=== PATIENT | male | born 1930 | race Caucasian/White ===

== ENCOUNTER 2018-03-15 12:07 | Outpatient (CLI) | payer MEDICARE, OTHER | END 2018-03-15 23:59 | disposition home or self-care (01) | LOC: VAS 12:07 | PROVIDERS: ATTEND Internal Medicine Cardiovascular Disease | DX: I65.23 Occlusion and stenosis of bilateral carotid arteries (principal); I08.1 Rheumatic disorders of both mitral and tricuspid valves; R55 Syncope and collapse; R40.4 Transient alteration of awareness; Z87.891 Personal history of nicotine dependence | CPT/HCPCS: 93306; 93880 ==

== ENCOUNTER 2018-04-04 05:56 | Day surgery (SDC) | payer MEDICARE, OTHER ==
[2018-04-03 14:30] LABS: INR 1.1 INR; PARTIAL THROMBOPLASTIN TIME 25 SECONDS (22-32); PROTHROMBIN TIME 11.5 SECONDS (9.0-12.0)
[2018-04-03 14:31] LABS: ALBUMIN 3.5 G/DL (3.4-5.0); ANION GAP 7 (8-16); BLOOD UREA NITROGEN 15 MG/DL (7-18); BUN/CREATININE RATIO 19.2 (5.4-32.0); CALCIUM 8.6 MG/DL (8.5-10.1); CHLORIDE 96 MMOL/L (99-107); CREATININE 0.78 MG/DL (0.60-1.10); GLUCOSE 89 MG/DL (70-104); POTASSIUM 4.7 MMOL/L (3.5-5.1); SODIUM 132 MMOL/L (135-145); TOTAL CARBON DIOXIDE 29.5 MMOL/L (24-32); eGFR > 90 ML/MIN
[2018-04-03 14:38] LABS: BASOPHILS % (AUTO) 0.5 % (0-1); EOSINOPHILS # (AUTO) 0.2 X10'3 (0-0.9); EOSINOPHILS % (AUTO) 4.7 % (0-6); HEMATOCRIT 37.5 % (42.0-52.0); LYMPHOCYTES # (AUTO) 1.4 X10'3 (1.1-4.8); LYMPHOCYTES % (AUTO) 28.3 % (21-51); MEAN CORPUSCULAR HEMOGLOBIN 34.8 PG (27.0-31.0); MEAN CORPUSCULAR HGB CONC 34.8 % (33.0-36.5); MEAN CORPUSCULAR VOLUME 100.1 FL (78-98); MEAN PLATELET VOLUME 7.3 FL (7.4-10.4); MONOCYTES # (AUTO) 0.6 X10'3 (0-0.9); MONOCYTES % (AUTO) 13.1 % (2-12); NEUTROPHILS # (AUTO) 2.6 X10'3 (1.8-7.7); NEUTROPHILS % (AUTO) 53.4 % (42-75); PLATELET COUNT 155 X10'3 (140-440); RED BLOOD COUNT 3.74 X10'6 (4.70-6.10); WHITE BLOOD COUNT 4.9 X10'3 (4.5-11.0)
[2018-04-04] VITALS (17 sets, daily range): BP systolic 91–139; BP diastolic 57–82
[~2018-04-04] VITALS: Ht 160 cm; Wt 66.0 kg
[2018-04-04] MEDS ORDERED: ceFAZolin 1GM/D5W- ADD-VANTAGE 50 ML IV ONE (06:45)
[2018-04-04] MEDS ORDERED: normal saline 1000ml 1,000 ML IV SCH (06:45)
[2018-04-04] MEDS ORDERED: [UNRECOGNIZED DRUG - CODE] PO (06:49)
[2018-04-04] MEDS ORDERED: POTA99TA21 PO (06:49)
[2018-04-04] MEDS ORDERED: VITA-268 PO (06:49)
[2018-04-04] MEDS ORDERED: UBID100C16 PO (06:49)
[2018-04-04] MEDS ORDERED: DIGO125T PO (06:49)
[2018-04-04] MEDS ORDERED: DABI150C PO (06:49)
[2018-04-04] MEDS ORDERED: MULT-1074 PO (06:49)
[2018-04-04] MEDS ORDERED: CHOL2000 PO (06:49)
[2018-04-04] MEDS ORDERED: ROSU10TA PO (06:49)
[2018-04-04] MEDS ORDERED: MAGN500C16 PO (06:49)
[2018-04-04] MEDS ORDERED: CALCIUM PO (06:49)
[2018-04-04] MEDS ORDERED: LEVO75TA PO (06:49)
[2018-04-04] MEDS ORDERED: OMEG1CAP20 PO (06:49)
[2018-04-04] MEDS ORDERED: FLO0.4C PO (06:49)
[2018-04-04] MEDS ORDERED: ASCO10007 PO (06:49)
[2018-04-04] MEDS ORDERED: CARV3.122 PO (06:49)
[2018-04-04] MEDS ORDERED: fentaNYL/PF 50MCG/1 ML 2ML syringe ONE (07:49)
[2018-04-04] MEDS ORDERED: midazolam 2 mg/2 ml injection ONE (07:49)
[2018-04-04] MEDS ORDERED: ceFAZolin 1000mg inj ONE (07:49)
[2018-04-04] MEDS ORDERED: LIDOcaine 1% w/EPI 1:100,000 30ml vial (MDV) ONE (07:50)
[2018-04-04] MEDS ORDERED: iohexol 350 MG/ML 50ML vial IV ONE (08:33)
[2018-04-04] MEDS ORDERED: atropine 0.1mg/ml 10ml syringe ONE (08:38)
[2018-04-04] MEDS ORDERED: HYDROcodone/acetaminophen 10/325mg tab PO PRN (10:15)
[2018-04-04] MEDS ORDERED: HYDROcodone/acetaminophen 5mg/325mg tablet PO PRN (10:15)
[2018-04-04] MEDS ORDERED: ceFAZolin 1GM/D5W- ADD-VANTAGE 50 ML IV SCH (15:00)
== END 2018-04-04 16:10 | disposition home or self-care (01) ==
LOC: SSTAY O 05:56
PROVIDERS: ATTEND Internal Medicine Cardiovascular Disease
DX: I49.5 Sick sinus syndrome (principal); I48.91 Unspecified atrial fibrillation; I25.10 Atherosclerotic heart disease of native coronary artery without angina pectoris; E78.5 Hyperlipidemia, unspecified; I48.0 Paroxysmal atrial fibrillation; N40.0 Benign prostatic hyperplasia without lower urinary tract symptoms; E03.9 Hypothyroidism, unspecified; I08.1 Rheumatic disorders of both mitral and tricuspid valves; M19.90 Unspecified osteoarthritis, unspecified site; I65.23 Occlusion and stenosis of bilateral carotid arteries; Z72.89 Other problems related to lifestyle; Z95.1 Presence of aortocoronary bypass graft; Z90.89 Acquired absence of other organs; Z86.74 Personal history of sudden cardiac arrest; Z88.8 Allergy status to other drugs, medicaments and biological substances; Z98.890 Other specified postprocedural states; Z79.899 Other long term (current) drug therapy
CPT/HCPCS: 33208; 36415; 71046; 80048; 85025; 85610; 85730; 93005; 99152; 99153; A4565; A6449; C1785; C1894; C1898; J0461; J0690; J2250; J3010; J3490; J7030; Q9967; A4620

== ENCOUNTER 2018-04-05 13:33 | Outpatient (CLI) | payer MEDICARE, OTHER ==
[~2018-04-05 13:33] MED LIST: ASCO10007 PO; CALCIUM PO; CARV3.122 PO; CHOL2000 PO; DABI150C PO; DIGO125T PO; FLO0.4C PO; LEVO75TA PO; MAGN500C16 PO; MULT-1074 PO; OMEG1CAP20 PO; POTA99TA21 PO; ROSU10TA PO; UBID100C16 PO; VITA-268 PO; [UNRECOGNIZED DRUG - CODE] PO
== END 2018-04-05 23:59 | disposition home or self-care (01) ==
LOC: RAD 13:33
PROVIDERS: ATTEND Internal Medicine Cardiovascular Disease
DX: J93.9 Pneumothorax, unspecified (principal); R91.8 Other nonspecific abnormal finding of lung field; Z87.891 Personal history of nicotine dependence
CPT/HCPCS: 71046

== ENCOUNTER 2018-07-10 06:45 | Day surgery (SDC) | payer MEDICARE, OTHER ==
[2018-07-09 14:18] LABS: BASOPHILS % (AUTO) 0.4 % (0-1); EOSINOPHILS # (AUTO) 0.2 X10'3 (0-0.9); EOSINOPHILS % (AUTO) 3.5 % (0-6); HEMOGLOBIN 13.6 g/dl (14.0-17.9); LYMPHOCYTES # (AUTO) 1.1 X10'3 (1.1-4.8); LYMPHOCYTES % (AUTO) 21.4 % (21-51); MEAN CORPUSCULAR HEMOGLOBIN 34.7 PG (27.0-31.0); MEAN CORPUSCULAR HGB CONC 34.9 % (33.0-36.5); MEAN CORPUSCULAR VOLUME 99.6 FL (78-98); MEAN PLATELET VOLUME 7.4 FL (7.4-10.4); MONOCYTES # (AUTO) 0.7 X10'3 (0-0.9); MONOCYTES % (AUTO) 12.8 % (2-12); NEUTROPHILS # (AUTO) 3.3 X10'3 (1.8-7.7); NEUTROPHILS % (AUTO) 61.9 % (42-75); PLATELET COUNT 151 X10'3 (140-440); RED BLOOD COUNT 3.92 X10'6 (4.70-6.10); RED CELL DISTRIBUTION WIDTH 13.3 % (11.5-14.5); WHITE BLOOD COUNT 5.3 X10'3 (4.5-11.0)
[2018-07-09 14:26] LABS: INR 1.2 INR; PROTHROMBIN TIME 12.3 SECONDS (9.0-12.0)
[2018-07-09 14:27] LABS: ALBUMIN 3.8 G/DL (3.4-5.0); ANION GAP 5 (8-16); BLOOD UREA NITROGEN 15 MG/DL (7-18); BUN/CREATININE RATIO 18.1 (5.4-32.0); CALCIUM 8.7 MG/DL (8.5-10.1); CHLORIDE 96 MMOL/L (99-107); CREATININE 0.83 MG/DL (0.60-1.10); GLUCOSE 84 MG/DL (70-104); POTASSIUM 4.8 MMOL/L (3.5-5.1); SODIUM 130 MMOL/L (135-145); TOTAL CARBON DIOXIDE 28.7 MMOL/L (24-32); eGFR 88 ML/MIN
[~2018-07-10] VITALS: Ht 162.6 cm; Wt 67.3 kg
[2018-07-10] VITALS (15 sets, daily range): BP systolic 86–130; BP diastolic 51–89
[~2018-07-10 06:45] MED LIST changes: +BICA50TA4 PO; -[UNRECOGNIZED DRUG - CODE] PO
[2018-07-10] MEDS ORDERED: diphenhydrAMINE 25mg capsule PO ONE (07:15)
[2018-07-10] MEDS ORDERED: normal saline 1000ml 1,000 ML IV SCH (07:15)
[2018-07-10] MEDS ORDERED: MIDAZolam 5mg/ml 2ml vial IV ONE (07:15)
[2018-07-10] MEDS ORDERED: LORazepam 0.5 MG tablet PO ONE (07:15)
[2018-07-10] MEDS ORDERED: atropine 0.1mg/ml 10ml syringe IV ONE (07:15)
[2018-07-10] MEDS ORDERED: morphine 10mg/ml inj. IV ONE (07:15)
[2018-07-10] MEDS ORDERED: amiodarone in dextrose, iso-osm 150mg/100ml bag IV ONE (07:15)
[2018-07-10] MEDS ORDERED: SOTA80TA73 PO (07:46)
[2018-07-10] MEDS ORDERED: MEMA5TAB PO (07:46)
== END 2018-07-10 11:35 | disposition home or self-care (01) ==
LOC: SSTAY O 06:45
PROVIDERS: ATTEND Internal Medicine Cardiovascular Disease
DX: I48.0 Paroxysmal atrial fibrillation (principal); E78.5 Hyperlipidemia, unspecified; I49.5 Sick sinus syndrome; I25.2 Old myocardial infarction; I25.810 Atherosclerosis of coronary artery bypass graft(s) without angina pectoris; M19.90 Unspecified osteoarthritis, unspecified site; N40.0 Benign prostatic hyperplasia without lower urinary tract symptoms; E03.9 Hypothyroidism, unspecified; Z72.89 Other problems related to lifestyle; Z86.74 Personal history of sudden cardiac arrest; Z96.619 Presence of unspecified artificial shoulder joint; Z95.0 Presence of cardiac pacemaker; Z95.1 Presence of aortocoronary bypass graft; Z90.49 Acquired absence of other specified parts of digestive tract; Z90.89 Acquired absence of other organs; Z98.890 Other specified postprocedural states; Z79.899 Other long term (current) drug therapy; Z88.8 Allergy status to other drugs, medicaments and biological substances; Z82.49 Family history of ischemic heart disease and other diseases of the circulatory system
CPT/HCPCS: 36415; 80048; 85025; 85610; 92960; 93005; J0282; J2250; J2270; J7030; A4620

== ENCOUNTER 2020-03-19 05:58 | Day surgery (SDC) | payer MEDICARE, OTHER ==
[2020-03-12 12:23] LABS: BASOPHILS % (AUTO) 0.7 % (0-1); EOSINOPHILS # (AUTO) 0.2 X10'3 (0-0.9); EOSINOPHILS % (AUTO) 3.1 % (0-6); MEAN CORPUSCULAR HEMOGLOBIN 34.4 PG (27.0-31.0); MEAN CORPUSCULAR HGB CONC 34.1 g/dL (33.0-36.5); MONOCYTES # (AUTO) 0.7 X10'3 (0-0.9); MONOCYTES % (AUTO) 12.7 % (2-12); NEUTROPHILS # (AUTO) 3.7 X10'3 (1.8-7.7); NEUTROPHILS % (AUTO) 65.5 % (42-75); PRE OP HEMATOCRIT 38.1 % (42.0-52.0); PRE OP PLATELET COUNT 170 X10'3 (140-440); RED BLOOD COUNT 3.77 X10'6 (4.70-6.10); RED CELL DISTRIBUTION WIDTH 12.7 % (11.5-14.5)
[2020-03-12 12:35] LABS: PRE OP INR 1.1 INR
[2020-03-12 12:36] LABS: ALBUMIN 4.1 G/DL (3.4-5.0); ALBUMIN/GLOBULIN RATIO 1.5 (1.1-1.5); ALKALINE PHOSPHATASE 64 IU/L (46-116); BLOOD UREA NITROGEN 12 MG/DL (7-18); BUN/CREATININE RATIO 13.6 (5.4-32.0); CALCIUM 9.1 MG/DL (8.5-10.1); CHLORIDE 95 MMOL/L (99-107); CREATININE 0.88 MG/DL (0.60-1.10); PRE OP ALT 18 U/L (30-65); PRE OP ANION GAP 7 (8-16); PRE OP AST 20 U/L (10-37); PRE OP BILIRUB, TOTAL 0.5 MG/DL (0.0-1.0); PRE OP GLUCOSE 95 MG/DL (70-104); PRE OP POTASSIUM 4.5 MMOL/L (3.4-5.1); TOTAL CARBON DIOXIDE 26.7 MMOL/L (24-32); TOTAL PROTEIN 6.9 G/DL (6.4-8.2); eGFR 82 ML/MIN
[2020-03-12 12:41] LABS: PRE OP SODIUM 129 MMOL/L (135-145)
[~2020-03-19] VITALS: Ht 165.1 cm; Wt 63.0 kg
[~2020-03-19 05:58] MED LIST changes: +ACET-1995 PO; +APIX5TAB3 PO; -ASCO10007 PO; -CALCIUM PO; -CARV3.122 PO; -CHOL2000 PO; -DABI150C PO; -DIGO125T PO; +FURO40TA4 PO; -MAGN500C16 PO; +MEMA5TAB PO; -MULT-1074 PO; -OMEG1CAP20 PO; +POTA10TA19 PO; -POTA99TA21 PO; -ROSU10TA PO; +ROSU10TA2 PO; +SOTA80TA73 PO; -UBID100C16 PO; -VITA-268 PO; +cefazolin/dext.iso 2gm/50ml 50 ML IV ONE; +famotidine 20mg tablet PO ONE; +ringers solution, lacted 1,000 ML IV SCH
[2020-03-19] MEDS ORDERED: BUPIVAcaine/PF 2.5mg/ml (0.25%) 10ml vial ONE (06:38)
[2020-03-19 06:45] VITALS: BP 150/78
[2020-03-19] MEDS ORDERED: ringers solution, lacted 1,000 ML IV SCH (07:17)
[2020-03-19] MEDS ORDERED: ondansetron/PF 4mg/2ml inj IV PRN (07:20)
[2020-03-19] MEDS ORDERED: hydrALAZINE 20mg/ml inj. IV PRN (07:20)
[2020-03-19] MEDS ORDERED: morphine 4 MG/ML inj SYRINge IV PRN (07:20)
[2020-03-19] MEDS ORDERED: fentaNYL/PF 50MCG/1 ML 2ML syringe IV PRN ×2 (07:20)
[2020-03-19] MEDS ORDERED: morphine 2 MG/ML inj. syringe IV PRN (07:20)
[2020-03-19] MEDS ORDERED: labetalol 20mg/4ml (5mg/ml) syringe IV PRN (07:20)
[2020-03-19] MEDS ORDERED: LIDOcaine 0.5% (5mg/ml) 50ml vial ONE (07:21)
[2020-03-19] MEDS ORDERED: MIDAZolam 5mg/5ml vial ONE (07:25)
[2020-03-19] MEDS ORDERED: fentaNYL/PF 50MCG/1 ML 2ML syringe ONE (07:25)
[2020-03-19 08:03] VITALS: BP 120/60
--- NOTE | 2020-03-19 08:03 | NUR ---
Received from OR via BED, accompanied by Anesthesiologist Dr Roper and report given by Anesthesiolgist. PATIENT A&OX4, DENIES PAIN, V/S WNL, NEUROVASCULAR CHECKS INTACT, 20G PIV left hand, SCD ON, DRESSING TO RIGHT WRIST CDI ELEVATED WITH ICEBAG APPLIED.
[2020-03-19 08:13] VITALS: BP 101/62
[2020-03-19 08:23] VITALS: BP 110/65
--- NOTE | 2020-03-19 09:08 | NUR ---
Pt discharged to vehicle without incident. IV DC'd, pt and verbalized all understanding of DC information. Pt has pain script at home already from [facility] office. Dressing reamins CDI, ice pack sent with patient and he is still able to wiggle gfingers good cap refill
== END 2020-03-19 08:53 | disposition home or self-care (01) ==
LOC: PAS 05:58
PROVIDERS: ATTEND Orthopaedic Surgery Hand Surgery
DX: G56.01 Carpal tunnel syndrome, right upper limb (principal); I25.10 Atherosclerotic heart disease of native coronary artery without angina pectoris; I48.91 Unspecified atrial fibrillation; I25.2 Old myocardial infarction; Z85.46 Personal history of malignant neoplasm of prostate; Z95.1 Presence of aortocoronary bypass graft; Z95.0 Presence of cardiac pacemaker; Z98.890 Other specified postprocedural states; Z88.8 Allergy status to other drugs, medicaments and biological substances; Z72.89 Other problems related to lifestyle; Z11.59 Encounter for screening for other viral diseases; Z79.899 Other long term (current) drug therapy; Z79.01 Long term (current) use of anticoagulants; Z82.49 Family history of ischemic heart disease and other diseases of the circulatory system
CPT/HCPCS: 36415; 64721; 80053; 82948; 85025; 85610; 85730; 93005; J2001; J2250; J3010; J3490; U0003; A4215; J7120

== ENCOUNTER 2020-05-10 05:38 | Day surgery (SDC) | payer MEDICARE, OTHER ==
[2020-05-03 14:14] LABS: BASOPHILS % (AUTO) 0.9 % (0-1); EOSINOPHILS # (AUTO) 0.2 X10'3 (0-0.9); EOSINOPHILS % (AUTO) 2.9 % (0-6); LYMPHOCYTES # (AUTO) 1.2 X10'3 (1.1-4.8); LYMPHOCYTES % (AUTO) 20.8 % (21-51); MEAN CORPUSCULAR HEMOGLOBIN 34.7 PG (27.0-31.0); MEAN CORPUSCULAR HGB CONC 33.9 g/dL (33.0-36.5); MEAN CORPUSCULAR VOLUME 102.1 FL (78-98); MEAN PLATELET VOLUME 6.9 FL (7.4-10.4); MONOCYTES # (AUTO) 0.7 X10'3 (0-0.9); MONOCYTES % (AUTO) 12.5 % (2-12); NEUTROPHILS # (AUTO) 3.5 X10'3 (1.8-7.7); NEUTROPHILS % (AUTO) 62.9 % (42-75); PRE OP HEMATOCRIT 35.9 % (42.0-52.0); PRE OP HEMOGLOBIN 12.2 g/dL (14.0-17.9); PRE OP PLATELET COUNT 168 X10'3 (140-440); RED BLOOD COUNT 3.52 X10'6 (4.70-6.10); RED CELL DISTRIBUTION WIDTH 12.6 % (11.5-14.5)
[2020-05-03 14:29] LABS: ALBUMIN 3.9 G/DL (3.4-5.0); ALBUMIN/GLOBULIN RATIO 1.3 (1.1-1.5); ALKALINE PHOSPHATASE 64 IU/L (46-116); BLOOD UREA NITROGEN 18 MG/DL (7-18); BUN/CREATININE RATIO 19.4 (5.4-32.0); CHLORIDE 97 MMOL/L (99-107); CREATININE 0.93 MG/DL (0.60-1.10); PRE OP ALT 19 U/L (30-65); PRE OP ANION GAP 8 (8-16); PRE OP AST 18 U/L (10-37); PRE OP BILIRUB, TOTAL 0.4 MG/DL (0.0-1.0); PRE OP GLUCOSE 86 MG/DL (70-104); PRE OP POTASSIUM 4.4 MMOL/L (3.4-5.1); PRE OP SODIUM 132 MMOL/L (135-145); TOTAL CARBON DIOXIDE 27.1 MMOL/L (24-32); TOTAL PROTEIN 6.9 G/DL (6.4-8.2); eGFR 77 ML/MIN
[~2020-05-10] VITALS: Ht 165.1 cm; Wt 64.0 kg
[~2020-05-10 05:38] MED LIST changes: +DOCUMENT DATE & TIME OF BETA-BLOCKER PO ONE; +ceFAZolin 2gm in dextrose, iso 50 ML IV ONE; -cefazolin/dext.iso 2gm/50ml 50 ML IV ONE
[2020-05-10 05:45] VITALS: BP 124/70
[2020-05-10] MEDS ORDERED: LIDOcaine 1% (10mg/ml) 2ml vial ONE (06:18)
[2020-05-10] MEDS ORDERED: BUPIVAcaine/PF 2.5mg/ml (0.25%) 10ml vial ONE (06:39)
[2020-05-10] MEDS ORDERED: LIDOcaine 0.5% (5mg/ml) 50ml vial ONE (07:40)
[2020-05-10] MEDS ORDERED: fentaNYL/PF 50MCG/1 ML 2ML syringe ONE (07:41)
[2020-05-10] MEDS ORDERED: midazolam 2 mg/2 ml injection ONE (07:42)
[2020-05-10] MEDS ORDERED: propofol inj 20 ML IV ONE (08:10)
[2020-05-10 08:17] VITALS: BP 113/74
--- NOTE | 2020-05-10 08:17 | NUR ---
Received from OR via [facility], accompanied by Anesthesiologist DR Mcneal and report given by Anesthesiolgist. PATIENT too sleepy to respond, oral airway in place, spontaneously moves all extremities, V/S WNL, 20G PIVright wrist, SCD ON, DRESSING TO left WRIST CDI ELEVATED WITH ICEBAG APPLIED.
[2020-05-10] MEDS ORDERED: ringers solution, lacted 1,000 ML IV SCH (08:18)
[2020-05-10 08:20] VITALS: BP 111/68
[2020-05-10] MEDS ORDERED: ondansetron/PF 4mg/2ml inj IV PRN (08:20)
[2020-05-10] MEDS ORDERED: meperidine/PF 25mg/ml syringe IV PRN ×3 (08:20)
[2020-05-10] MEDS ORDERED: acetaminophen 1,000mg/100ml IV 100 ML IV PRN (08:20)
[2020-05-10] MEDS ORDERED: morphine 2 MG/ML inj. syringe IV PRN (08:20)
--- NOTE | 2020-05-10 08:23 | NUR ---
LMA expelled by patient independently. Opening eyes responding to questions verbally.
[2020-05-10 08:30] VITALS: BP 121/70
[2020-05-10 08:40] VITALS: BP 131/74
--- NOTE | 2020-05-10 09:07 | NUR ---
PATIENT A&OX4, DENIES PAIN, V/S WNL, NEUROVASCULAR CHECKS INTACT, 20G PIV D/C, SCD OFF, DRESSING TO LEFT WRIST CDI ELEVATED WITH ICEBAG APPLIED. I HAVE REVIEWED D/C INSTRUCTIONS WITH PATIENT AND FAMILY AND THEY HAVE VERBALIZED UNDERSTANDING. PATIENT D/C HOME WITH ALL BELONGINGS AND FAMILY GAVE TRANSPORT HOME. PT HAS PAIN MEDS FROM MD OFFICE ALREADY FILLED AT HOME. NO PAIN AT THIS TIME.
== END 2020-05-10 09:07 | disposition home or self-care (01) ==
LOC: PAS 05:38
PROVIDERS: ATTEND Orthopaedic Surgery Hand Surgery
DX: G56.02 Carpal tunnel syndrome, left upper limb (principal); I48.91 Unspecified atrial fibrillation; I25.2 Old myocardial infarction; E03.9 Hypothyroidism, unspecified; Z11.59 Encounter for screening for other viral diseases; Z79.899 Other long term (current) drug therapy; Z88.8 Allergy status to other drugs, medicaments and biological substances; Z95.0 Presence of cardiac pacemaker; Z98.890 Other specified postprocedural states; Z72.89 Other problems related to lifestyle; Z95.1 Presence of aortocoronary bypass graft; Z85.46 Personal history of malignant neoplasm of prostate; Z82.49 Family history of ischemic heart disease and other diseases of the circulatory system
CPT/HCPCS: 36415; 64721; 80053; 82948; 85025; A6222; J2001; J2250; J2704; J3010; J3490; U0003; A4215; J7120